=== PATIENT | male | born 1985 | race American Indian/Alaskan Native ===

== ENCOUNTER 2020-07-11 06:16 | Emergency (ER) | payer SELFPAY ==
[2020-07-11 06:23] VITALS: BP 139/78
--- NOTE | 2020-07-11 07:30 | Emergency Department Report ---
Minor Respiratory - HPI Chief Complaint: Headache Stated Complaint: FEVER/HEADACHE Time Seen by Provider: 07/11/20 07:27 Duration: 1 Day Pain Location: Other Severity: mild Minor Respiratory: Yes Able to Tolerate Fluids, No Rhinorrhea, No Sore Throat, No Ear Pain, No Cough, No Sick Contacts, No Hemoptysis, No Chest Pain, No Shortness of Breath, No Fever Other History: Patient is a 34-year-old -[place] male that comes to the ER this morning complaining of vomiting x1. He states that he has a metallic taste in his mouth and is making him nauseated. He reports dental pain of a right upper molar. He has not seen his primary care. He has not seen his dentist. He is taken no [id number] medications for his complaints prior t o arrival. Patient is ambulatory [id number] and nontoxic with normal vital signs on arrival to the ER. Patient denies cough, fever or chills. ED Review of Systems ROS: Stated complaint: FEVER/HEADACHE Other details as noted in HPI Comment: All other systems reviewed and negative ED Past Medical Hx - Past Medical History Previous Medical History?: No - Surgical History Past Surgical History?: No - Family History Family history: no significant - Social History Smoking Status: Current Every Day Smoker Substance Use Type: None - Medications Home Medications: Home Medications Medication Instructions Recorded Confirmed Last Taken Type Amoxicillin [Trimox CAP] 500 mg PO BID #20 capsule 07/11/20 Unknown Rx Ibuprofen [Motrin] 800 mg PO Q8HR PRN #30 tablet 07/11/20 Unknown Rx Minor Respiratory Exam - Exam General: Vital signs noted. No distress. Alert and acting appropriately. dental pain tooth no 2 no abscess no [facility] intact vss taking po no trismus HEENT: Yes Moist Mucous Membranes, No Pharyngeal Erythema, No Pharyngeal Exudates, No Rhinorrhea, No Conjuctival Injection, No Frontal Tenderness, No Maxillary Tenderness Ear: Neither TM Bulge, Neither TM Erythema, Neither EAC Pain, Neither EAC Discharge Neck: Yes Adenopathy, Yes Supple Lungs: Yes Good Air Exchange, No Wheezes, No Ronchi, No Stridor, No Cough, No Labored Respirations, No Retractions, No Use of Accessory Muscles, No Other Abnormal Lung Sounds Heart: Yes Regular, No Murmur Abdomen: Yes Normal Bowel Sounds, No Tenderness, No Peritoneal Signs Skin: No Rash, No Edema Neurologic: Alert and oriented, no deficits. Musculoskeletal: Unremarkable. ED Course Vital Signs 07/11/20 06:21 Temperature 97.8 F Pulse Rate 72 Respiratory 17 Rate Blood Pressure 139/78 O2 Sat by Pulse 97 Oximetry ED Medical Decision Making - Medical Decision Making Vital Signs 07/11/20 06:21 Temperature 97.8 F Pulse Rate 72 Respiratory 17 Rate Blood Pressure 139/78 O2 Sat by Pulse 97 Oximetry pt being discharged home with referral to PCP and dentist. I have educated the patient on the seriousness of dental infections and the fact that they need to be treated promptly. He verbalizes understanding of discharge plan of care - Differential Diagnosis dental infection Critical care attestation.: If time is entered above; I have spent that time in minutes in the direct care of this critically ill patient, excluding procedure time. ED Disposition Clinical Impression: Dental infection Disposition: TO HOME OR SELFCARE Is pt being admited?: No Does the pt Need Aspirin: No Condition: Stable Prescriptions: Ibuprofen [Motrin] 800 mg PO Q8HR PRN #30 tablet PRN Reason: Pain, Moderate (4-6) Amoxicillin [Trimox CAP] 500 mg PO BID #20 capsule Referrals: PRIMARY CAREMD [Primary Care Provider] - 3-5 Days NEISHA MADRID MD [Staff Physician] - 3-5 Days [facility] [Outside] - 3-5 Days [facility] [Outside] - 3-5 Days Time of Disposition: 07:30
== END 2020-07-11 07:30 | disposition home or self-care (01) ==
LOC: ED 06:16
DX: K04.7 Periapical abscess without sinus (principal); F17.200 Nicotine dependence, unspecified, uncomplicated; Z79.1 Long term (current) use of non-steroidal anti-inflammatories (NSAID); Z79.2 Long term (current) use of antibiotics
CPT/HCPCS: 99282

== ENCOUNTER 2021-04-19 15:50 | Emergency (ER) | payer SELFPAY ==
[2021-04-19 17:20] VITALS: BP 122/74
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
== END 2021-04-19 17:58 | disposition home or self-care (01) ==
LOC: ED 15:50
DX: M54.2 Cervicalgia (principal); M54.6 Pain in thoracic spine; F17.200 Nicotine dependence, unspecified, uncomplicated; Z79.899 Other long term (current) drug therapy; V87.7XXA Person injured in collision between other specified motor vehicles (traffic), initial encounter; Y93.89 Activity, other specified; Y92.488 Other paved roadways as the place of occurrence of the external cause; Y99.8 Other external cause status
CPT/HCPCS: 99282